=== PATIENT | female | born 1940 | race Caucasian/White ===

== ENCOUNTER → 2020-05-04 | Outpatient (REF) | payer MEDICARE ==
[2020-05-04 18:40] LABS: PERCENT SATURATION 21.3 % (13.2-45.0)
== END ==
LOC: M LAB REF 17:14
PROVIDERS: ATTEND Internal Medicine
DX: R53.83 Other fatigue (principal); R16.0 Hepatomegaly, not elsewhere classified; D50.9 Iron deficiency anemia, unspecified

== ENCOUNTER → 2021-06-21 | Outpatient (CLI) | payer MEDICARE ==
--- NOTE | 2021-06-21 13:14 | REP ---
INDICATION: SHORTNESS OF BREATH. COMPARISON: None. TECHNIQUE: PA and lateral FINDINGS: The superior mediastinal structures are midline. The cardiac silhouette is unremarkable in size, shape, and position. The diaphragmatic surfaces of the lungs are regular, and the costophrenic angles are clear. The pulmonary quezada are clear. The imaged osseous structures are intact. IMPRESSION: There is no acute cardiopulmonary disease. <Electronically signed by Fabrice Man > 06/21/21 [id number]
== END ==
LOC: M WUC 11:46
PROVIDERS: ATTEND Internal Medicine
DX: R06.02 Shortness of breath (principal)